=== PATIENT | female | born 1990 | race Caucasian/White ===

== ENCOUNTER 2018-03-01 17:01 | Emergency (ER) | payer OTHER, MEDICAID ==
[~2018-03-01] VITALS: Ht 157.5 cm; Wt 69.8 kg
[~2018-03-01 17:01] MED LIST: BENADRYL25 MG PO; BIRTH CONTROL; FLAGYL500 MG PO; GLUCOPHAGE XR500 MG PO; LIDOCAINE-HC 3-07 G1 TOP; MEDROLDOSEPACK PO; NAPROSYN500 MG PO; NORCO 5-325 TA1 EACH PO; ONDANSETRON HCL4 M2 PO; TRIAMCINOLONE A80 GM TOP
[2018-03-01] MEDS ORDERED: PRENATAL PO (17:36)
[2018-03-01 18:25] LABS: URINE BILIRUBIN NEGATIVE (Negative); URINE BLOOD NEGATIVE (Negative); URINE CLARITY CLEAR; URINE COLOR YELLOW; URINE GLUCOSE-RANDOM NEGATIVE (Negative); URINE KETONES NEGATIVE (Negative); URINE LEUKOCYTES-REFLEX NEGATIVE (Negative); URINE NITRITE-REFLEX NEGATIVE (Negative); URINE PROTEIN NEGATIVE (Negative); URINE UROBILINOGEN 0.2 E.U./dl (0.2-1.0)
[2018-03-01 19:46] VITALS: BP 116/79
== END 2018-03-01 19:47 | disposition left against medical advice (07) ==
LOC: M.ERS 17:01
PROVIDERS: Nurse Practitioner Family
DX: O26.891 Other specified pregnancy related conditions, first trimester (principal); R10.32 Left lower quadrant pain; Z3A.11 11 weeks gestation of pregnancy